=== PATIENT | male | born 1970 | race Caucasian/White ===

== ENCOUNTER 2020-02-01 12:18 | Emergency (ER) | payer OTHER ==
[2020-02-01 12:42] VITALS: RESP 18
--- NOTE | 2020-02-01 13:40 | US ---
EXAMINATION TYPE: US groin RT DATE OF EXAM: 02/01/2020 COMPARISON: NONE CLINICAL HISTORY: mass. palpable within right groin that is tender, no h/o infection or illness per p atient Multiple enlarged lymph nodes, largest = 3.6 x 1.3 x 3.5cm IMPRESSION: Multiple abnormal right groin lymph nodes identified in images saved. Consider neoplasm such as lymphoma. Follow-up advised.
--- NOTE | 2020-02-01 14:01 | ED ---
General Adult HPI - General Chief complaint: Abdominal Pain Stated complaint: poss hernia Time Seen by Provider: 02/01/20 12:45 Source: patient, RN notes reviewed Mode of arrival: ambulatory Limitations: no limitations - History of Present Illness Initial comments: 49-year-old male presents to the emergency room for a chief complaint of mass in the right groin. Patient reports that this has been there for a few weeks. Patient states it is tender it hurts to walk. She states it could be a hernia. Patient denies any abdominal pain or nausea vomiting.Patient has no other complaints at this time including shortness of breath, chest pain, abdominal pain, nausea or vomiting, headache, or visual changes. - Related Data Home Medications Medication Instructions Recorded Confirmed No Known Home Medications 02/01/20 02/01/20 Allergies Allergy/AdvReac Type Severity Reaction Status Date / Time sulfamethoxazole Allergy Unknown Verified 02/01/20 13:54 [From Bactrim] trimethoprim [From Bactrim] Allergy Unknown Verified 02/01/20 13:54 Review of Systems ROS Statement: Those systems with pertinent positive or pertinent negative responses have been documented in the HPI. ROS Other: All systems not noted in ROS Statement are negative. Past Medical History History of Any Multi-Drug Resistant Organisms: None Reported Past Surgical History: Orthopedic Surgery Smoking Status: Current some day smoker Past Alcohol Use History: None Reported Past Drug Use History: None Reported General Exam Limitations: no limitations General appearance: alert, in no apparent distress Head exam: Present: atraumatic, normocephalic, normal inspection Eye exam: Present: normal appearance, PERRL, EOMI. Absent: scleral icterus, conjunctival injection, periorbital swelling ENT exam: Present: normal exam, mucous membranes moist Neck exam: Present: normal inspection, full ROM. Absent: tenderness, meningismus, lymphadenopathy Respiratory exam: Present: normal lung sounds bilaterally. Absent: respiratory distress, wheezes, rales, rhonchi, stridor Cardiovascular Exam: Present: regular rate, normal rhythm, normal heart sounds. Absent: systolic murmur, diastolic murmur, rubs, gallop, clicks GI/Abdominal exam: Present: soft, normal bowel sounds. Absent: distended, tenderness, guarding, rebound, rigid Extremities exam: Present: other (Pt has a large mobile mass in the right groin approx 4 cm x 3 cm.) Course Vital Signs 02/01/20 12:39 Temperature 99.0 F Pulse Rate 75 Respiratory 18 Rate Blood Pressure 140/80 O2 Sat by Pulse 98 Oximetry Medical Decision Making - Medical Decision Making Vitals are stable. HPI and physical exam as documented. Groin ultrasound shows multiple abnormal right groin lymph nodes identified. Consider neoplasm such as lymphoma. I discussed these results with patient. He is aware there is concern for malignant etiology. He was given referrals to primary care and oncologist. He will return here for any worsening symptoms.I discussed this case with attending Dr. Gilbert who agrees with this assessment and treatment plan. Disposition Clinical Impression: Lymphadenopathy Disposition: HOME SELF-CARE Condition: Good Instructions (If sedation given, give patient instructions): Lymphadenopathy (ED) Additional Instructions: Please follow up with primary care and oncology. Lymph node should be biopsied. If you're having worsening symptoms return to the emergency room. Is patient prescribed a controlled substance at d/c from ED?: No Referrals: Nile Tijerina [STAFF PHYSICIAN] - 1-2 days Time of Disposition: 14:00
[2020-02-01 14:14] VITALS: BP 123/85; PULSE 63; TEMP 98.7
== END 2020-02-01 14:12 | disposition home or self-care (01) ==
LOC: EC 12:18
DX: R59.1 Generalized enlarged lymph nodes (principal); F17.200 Nicotine dependence, unspecified, uncomplicated; Z88.2 Allergy status to sulfonamides; Z88.1 Allergy status to other antibiotic agents
CPT/HCPCS: 99284

== ENCOUNTER → 2022-06-24 | Outpatient (CLI) | payer OTHER ==
--- NOTE | 2022-06-25 06:43 | MR ---
EXAMINATION TYPE: MR knee RT wo con DATE OF EXAM: 06/24/2022 COMPARISON: Prior right knee x-ray June 09, 2022 HISTORY: RT KNEE PAIN AND SWELLING and locking for 40 years with history of prior surgery and torn ca rtilage trauma remotely. TECHNIQUE: Multiplanar, multisequence images of the knee is performed without IV contrast. FINDINGS: Suboptimal study due to susceptibility artifact presumed from prior surgery. MEDIAL MENISCUS: Truncated appearance suspected majorities surgically resected. Some increased signal in the remnant posterior horn sagittal image 9. LATERAL MENISCUS: Irregular oblique signal posterior horn lateral meniscus extends to articular surfa ce coronal image 26. More globular increased signal anterior horn anterior lateral aspect has additio nal horizontal component extending towards the central body. CRUCIATE LIGAMENTS: The posterior cruciate ligament is intact and unremarkable. Complete tear of the anterior cruciate ligament at mid body. COLLATERAL LIGAMENTS: The medial collateral ligament and lateral collateral ligament complex are like ly intact. There is susceptibility artifact near proximal insertion of the medial collateral ligament . There is thickening of the biceps femoris. EXTENSOR MECHANISM: Visualized quadriceps and patellar tendons are intact. EFFUSION: Large size suprapatellar joint effusion. POPLITEAL CYST: No popliteal/richardson cyst. TRICOMPARTMENT SPACES: [id number] narrowing medial and lateral tibiofemoral compartments with m ild tricompartment spurring. CARTILAGE: Some chondromalacia patella with cartilaginous loss and fissuring along the medial aspect of the posterior patellar pole and sagittal images 16 and 17 for reference. Some cartilaginous loss m edial tibiofemoral compartment. BONE MARROW SIGNAL: No focal abnormal marrow signal is appreciated. OTHER: Susceptibility artifact distal medial femoral condyle level appears to correspond to 5 mm hype rdense soft tissue foreign body on x-ray. Suspect metallic fragment. Correlate clinically. IMPRESSION: 1. Prior medial meniscal surgery. At least recurrent intrasubstance tear in the remnant posterior hor n. 2. Full-thickness tear posterior horn lateral meniscus. At least intrasubstance tear anterior horn la teral meniscus extending into central body. 3. Large-sized suprapatellar joint effusion. 4. There is 5 mm soft tissue foreign body presumed metallic fragment at level of the distal medial fe moral condyle causing susceptibility artifact making evaluation slightly suboptimal. 5. Mild to moderate tricompartment degenerative changes as detailed above. 6. Complete ACL tear.
== END | disposition home or self-care (01) ==
LOC: RADMRIMAIN 07:34
PROVIDERS: ATTEND Orthopaedic Surgery
DX: S83.281A Other tear of lateral meniscus, current injury, right knee, initial encounter (principal); S80.251A Superficial foreign body, right knee, initial encounter; M17.11 Unilateral primary osteoarthritis, right knee; M25.461 Effusion, right knee